=== PATIENT | female | born 1945 | race Caucasian/White ===

== ENCOUNTER 2017-01-27 10:16 | Emergency (ER) | payer MEDICARE, OTHER ==
--- NOTE | 2017-01-27 11:57 | ER NURSING DOCUMENTATION ---
Nurse's Notes [facility] Name:Francy Gore Age:71 yrs Sex:Female :1945 Arrival Date:01/27/2017 Time:10:08 Bed1 Private MD:No PCP, Identified Diagnosis:Knee Contusion Presentation: 01/27 10:09 Acuity: RAFAEL 3 lc 10:18 Presenting complaint: Patient states: YESTERDAY FELL AND TWISTED LEFT KNEE, NO POP. C/O lc PAIN WITH WT BEARING, MEDIALLY AND FEELS UNSTABLE. TKR TO BOTH SIDES. DENIES OTHER INJURY. Transition of care: patient was not received from another setting of care. Notified ED Physician of patient's arrival and CC. 10:18 Method Of Arrival: Private Vehicle lc Triage Assessment: 10:26 General: Appears in no apparent distress, Behavior is appropriate for age, cooperative. lc Pain: Complains of pain in left knee Pain At worst was 6 out of 10 on a pain scale. Quality of pain is described as throbbing, Pain began 1 day ago Aggravated by increased activity, weight bearing. Neuro: Level of Consciousness is awake, alert, Oriented to person, place, time, event. Derm: Skin is pink, warm & dry. Musculoskeletal: Circulation, motion, and sensation intact Capillary refill < 3 seconds Range of motion limited in left knee Swelling present in left knee. Injury Description: TWISTING FALL. Historical: - Allergies: No known drug Allergies; - Home Meds: 1. ELAQUIS 2. Metoprolol Tartrate Oral 3. Methotrexate (Anti-Rheumatic) Oral 4. Folic Acid Oral 5. Prednisone Oral 6. Protonix Oral 7. hydroxychloroquine oral 8. Aspirin EC Oral - PMHx: Hypertension; ARTHRITIS; CAD; ATRIAL FIB; - PSHx: ABLATION; KNEE SURGERY; FOOT; Cholecysectomy; - Tetanus: < 10 years. - Ebola Screening: : Patient negative for fever greater than or equal to 101.5 degrees Fahrenheit, and additional compatible Ebola Virus Disease symptoms. Patient denies exposure to infectious person. Patient denies travel to an Ebola-affected area in the 21 days before illness onset. No symptoms or risks identified at this time. . - Immunization history: Flu Vaccine < 1 year. - Social history: Smoking status: Patient states was never smoker of tobacco. Screenin:28 Infectious Disease Risk None. Abuse screen: Denies threats or abuse. Denies injuries lc from another. Nutritional screening: No deficits noted. Assessment: 10:28 See Triage Assessment done by same RN. Vital Signs: 10:09 BP 128 / 55 RA Sitting (auto/reg); Pulse 71 RA; Resp 16 S; Temp 99.6(TE); Pulse Ox 91% em3 on R/A; Weight 60.33 kg (R); Height 5 ft. 5 in. (165.10 cm) (R); Pain 5/10; 11:43 Pain 2/10; lc 10:09 Body Mass Index 22.13 (60.33 kg, 165.10 cm) em3 ED Course: 10:08 Patient arrived in ED. em3 10:09 Hilary Frost RN is Primary Nurse. 10:09 Triage completed. 10:13 Valuables Remains with patient Patient has correct armband on for positive em3 identification. Placed in gown. Bed in low position. Call light in reach. Side rails up X 1. 10:29 Ice pack to injury. Elevated left leg. 10:40 Port Xray Completed. pm1 11:02 No PCP, Identified is Private Physician. em3 11:31 Elie Romero MD is Attending Physician. tl1 Administered Medications: No medications were administered Outcome: 11:32 Discharge ordered by . tl1 11:43 Discharged to [facility] 11:43 Condition: stable 11:43 Discharge Assessment: Patient awake, alert and oriented x 3. No cognitive and/or functional deficits noted. Patient verbalized understanding of disposition instructions. 11:43 Discharge instructions given to patient, Instructed on discharge instructions, follow up and referral plans. medication usage, [facility] Demonstrated understanding of instructions, medications, Prescriptions given X 1, FOR NORCO 11:45 Instructed on XRAY COPY GIVEN 11:56 Patient left the ED. Signatures: Hilary Frost RN RN Hubert Whiteside pm1 Casey Sandhu em3 Elie Romero MD MD tl1
--- NOTE | 2017-01-29 10:40 | RADIOLOGY REPORT ---
Three views of the left knee without prior films for comparison demonstrates no acute displaced fracture or dislocation. Left knee arthroplasty is noted. Components appear intact and in appropriate position. Deformities of the left proximal fibula are consistent with old healed fractures. Heterotopic ossification is seen adjacent to the posterior and lateral aspect of the distal femur. IMPRESSION: Extensive chronic changes as noted. No acute displaced injury is identified. If clinically indicated, further evaluation and/or follow-up may be of benefit. ROHIT
--- NOTE | 2017-01-29 11:56 | ER PHYSICIAN DOCUMENTATION ---
Physician Documentation [facility] Name:Francy Gore Age:71 yrs Sex:Female :1945 Arrival Date:01/27/2017 Time:10:08 Bed1 Private MD:No PCP, Identified ED Elie Bingham Disposition: 01/28 06:09 Chart complete. tl1 Disposition: 01/27/17 11:32 Discharged to Home/Self Care. Impression: Knee Contusion. - Condition is Good. - Discharge Instructions: CONTUSION, Lower Extremity. - Prescriptions for [place] 7.5- 325 mg Oral - take 1 tablet by ORAL route every 6 hours As needed; 12 tablet. Zofran 4 mg Oral Tablet - take 1-2 tablet by ORAL route every 4-6 hours As needed; 10 tablet. - Medical Reconciliation form form. - Follow up: Private Physician; When: 7 - 10 days; Reason: Recheck today's complaints, Continuance of care. - Problem is new. - Symptoms are unchanged. HPI: 01/27 10:15 This 71 yrs old Female presents to ER via Private Vehicle with complaints of tl1 Knee Injury - Left. 10:15 The patient presents with an injury. The complaints affect the left knee. She is s/p tl1 left total knee replacement. She was getting into a swimming pool and misjudged the depth of the step, causing her to lose her balance and strain her left knee. She has been able to walk, though with significant pain. She fell, landing on her left buttock, but has only minor discomfort there. No other complaints. Historical: - Allergies: No known drug Allergies; - Home Meds: 1. ELAQUIS 2. Metoprolol Tartrate Oral 3. Methotrexate (Anti-Rheumatic) Oral 4. Folic Acid Oral 5. Prednisone Oral 6. Protonix Oral 7. hydroxychloroquine oral 8. Aspirin EC Oral - PMHx: Hypertension; ARTHRITIS; CAD; ATRIAL FIB; - PSHx: ABLATION; KNEE SURGERY; FOOT; Cholecysectomy; - Tetanus: < 10 years. - Ebola Screening: : Patient negative for fever greater than or equal to 101.5 degrees Fahrenheit, and additional compatible Ebola Virus Disease symptoms. Patient denies exposure to infectious person. Patient denies travel to an Ebola-affected area in the 21 days before illness onset. No symptoms or risks identified at this time. . - Immunization history: Flu Vaccine < 1 year. - Social history: Smoking status: Patient states was never smoker of tobacco. ROS: 10:15 MS/extremity: Positive for pain, tenderness, of the left knee. tl1 10:15 All other systems are negative. Exam: 10:15 Constitutional: This is a well developed, well nourished patient who is awake, alert, tl1 and in no acute distress. 10:15 Head/Face: Normocephalic, atraumatic. tl1 10:15 Cardiovascular: Rate: normal. 10:15 Respiratory: Respirations: normal. 10:15 Musculoskeletal/extremity: Extremities: grossly normal except: noted in the left knee: tenderness, There is no evidence of abrasion, deformity, ecchymosis, laceration, swelling, Joints: the left knee displays painful range of motion, There is TTP OVER THE PROXIMAL MEDIAL PATELLA AND THE DISTAL VASTUS MEDIALIS. No ligamentous laxity or effusion.. Vital Signs: 10:09 BP 128 / 55 RA Sitting (auto/reg); Pulse 71 RA; Resp 16 S; Temp 99.6(TE); Pulse Ox 91% em3 on R/A; Weight 60.33 kg (R); Height 5 ft. 5 in. (165.10 cm) (R); Pain 5/10; 11:43 Pain 2/10; lc 10:09 Body Mass Index 22.13 (60.33 kg, 165.10 cm) em3 MDM: 10:12 Patient medically screened. tl1 10:40 Differential diagnosis: dislocation, closed fracture, contusion, sprain, hardware tl1 displacement. Data reviewed: vital signs, nurses notes, and as a result, I will discharge patient. Counseling: I had a detailed discussion with the patient and/or guardian regarding: the historical points, exam findings, and any diagnostic results supporting the discharge/admit diagnosis, radiology results, the need for outpatient follow up, for a recheck, a orthopedic surgeon, to return to the emergency department if symptoms worsen or persist or if there are any questions or concerns that arise at home. Response to treatment: There is no appreciated change of the patient's symptoms at this time, and as a result, I will discharge patient. 01/29 11:43 Order name: KNEE; [address] [place] [id number] EDMS Dispensed Medications: No medications were administered Signatures: Hilary Frost, DIANNA RN Elie Quinones MD MD tl1
== END 2017-01-27 11:57 | disposition home or self-care (01) ==
LOC: ER 10:16
DX: S80.02XA Contusion of left knee, initial encounter (principal); W01.0XXA Fall on same level from slipping, tripping and stumbling without subsequent striking against object, initial encounter; Y92.34 Swimming pool (public) as the place of occurrence of the external cause; Y93.01 Activity, walking, marching and hiking; Z96.652 Presence of left artificial knee joint; I10 Essential (primary) hypertension; I25.10 Atherosclerotic heart disease of native coronary artery without angina pectoris; I48.91 Unspecified atrial fibrillation; Z79.82 Long term (current) use of aspirin; Z79.899 Other long term (current) drug therapy; Z79.52 Long term (current) use of systemic steroids
CPT/HCPCS: 99283